=== PATIENT | female | born 1980 | race Caucasian/White ===

== ENCOUNTER 2020-10-07 11:18 | Emergency (ER) | payer OTHER, SELFPAY ==
[2020-10-07] MEDS ORDERED: Lidocaine 1% 20 ML MDV ONE (11:48)
[2020-10-07] MEDS ORDERED: Boostrix 0.5 ML (Tdap) VIAL ONE (11:48)
== END 2020-10-07 12:27 | disposition home or self-care (01) ==
LOC: MADERS 11:18
DX: S61.210A Laceration without foreign body of right index finger without damage to nail, initial encounter (principal); F17.210 Nicotine dependence, cigarettes, uncomplicated; I10 Essential (primary) hypertension; W26.0XXA Contact with knife, initial encounter
CPT/HCPCS: 12002; 90471; 90715